=== PATIENT | male | born 1985 | race Caucasian/White ===

== ENCOUNTER 2018-06-24 15:56 | Emergency (ER) | payer SELFPAY ==
[2018-06-24 16:15] VITALS: Ht 170.2 cm
[2018-06-24 19:18] VITALS: BP 128/89
== END 2018-06-24 19:18 | disposition home or self-care (01) ==
LOC: ED 15:56
DX: S61.311A Laceration without foreign body of left index finger with damage to nail, initial encounter (principal); X58.XXXA Exposure to other specified factors, initial encounter; Y93.89 Activity, other specified; Y92.89 Other specified places as the place of occurrence of the external cause; Y99.8 Other external cause status
CPT/HCPCS: A4570; J2001